=== PATIENT | male | born 1960 | race African-American/Black ===

== ENCOUNTER 2021-07-31 10:35 | Emergency (ER) | payer OTHER | END 2021-07-31 11:46 | disposition home or self-care (01) | LOC: NAV ERS 10:35 | DX: M25.562 Pain in left knee (principal); M25.462 Effusion, left knee; I10 Essential (primary) hypertension; I25.10 Atherosclerotic heart disease of native coronary artery without angina pectoris; E78.5 Hyperlipidemia, unspecified; E78.00 Pure hypercholesterolemia, unspecified; H40.9 Unspecified glaucoma; X50.1XXA Overexertion from prolonged static or awkward postures, initial encounter; Y93.01 Activity, walking, marching and hiking; Z87.891 Personal history of nicotine dependence; Z79.82 Long term (current) use of aspirin; Z79.899 Other long term (current) drug therapy ==